=== PATIENT | male | born 1985 | race Caucasian/White ===

== ENCOUNTER 2018-06-02 16:23 | Inpatient (IN) | payer MEDICAID, OTHER ==
[~2018-06-02] VITALS: Ht 175.3 cm; Wt 91.3 kg
[~2018-06-02 16:23] MED LIST: BUPR-93 PO; GABA-531 PO; GABA300C PO; LEVE500T8 PO; LIB10 PO; METH10 PO; OLAN5TAB2 PO
[2018-06-02 17:19] LABS: GLUCOSE,POINT OF CARE 94 MG/DL (70-110)
[2018-06-02 19:05] LABS: AMPHET/METH SCREEN,URINE NEGATIVE (NEGATIVE); BARBITURATE SCREEN, URINE NEGATIVE (NEGATIVE); BENZODIAZEPINES SCREEN,URINE POSITIVE (NEGATIVE); CANNABINOID SCREEN,URINE NEGATIVE (NEGATIVE); COCAINE SCREEN,URINE NEGATIVE (NEGATIVE); METHADONE SCREEN, URINE POSITIVE (NEGATIVE); OPIATE SCREEN,URINE NEGATIVE (NEGATIVE)
[2018-06-02 19:12] LABS: PHENCYCLIDINE SCREEN,URINE NEGATIVE (NEGATIVE)
[2018-06-02 19:30] LABS: BASOPHILS % (AUTO) 0.4 % (0.0-2.0); EOSINOPHILS % (AUTO) 2.1 % (1.0-6.0); HEMATOCRIT 35.3 % (41-53); HEMOGLOBIN 11.8 g/dL (13.5-17.5); LYMPHOCYTES # (AUTO) 2.5 K/uL (1.0-4.8); LYMPHOCYTES % (AUTO) 37.7 % (22.0-44.0); MEAN CORPUSCULAR HGB CONC 33.5 G/dL (31.0-37.0); MEAN CORPUSCULAR VOLUME 87 fL (80-100); MONOCYTES # (AUTO) 0.2 K/uL (0.1-1.0); NEUTROPHILS # (AUTO) 3.8 K/uL (1.8-7.7); NEUTROPHILS % (AUTO) 56.8 % (40.0-70.0); PLATELET COUNT (AUTO) 336 K/uL (150-450); RED BLOOD CELL COUNT(AUTO) 4.07 MIL/uL (4.50-5.90)
[2018-06-02 20:08] LABS: ALANINE AMINOTRANSFERASE 37 U/L (12-78); ALKALINE PHOSPHATASE 107 U/L (46-116); ANION GAP 8 mmol/L (8-16); ASPARTATE AMINOTRANSFERASE 30 U/L (15-37); BILIRUBIN,TOTAL 0.2 mg/dL (0.1-1.0); CALCIUM, TOTAL 9.3 mg/dL (8.8-10.5); CARBON DIOXIDE 30 mmol/L (22-29); CHLORIDE 103 mmol/L (98-107); GLOMERULAR FILTR. RATE CALC > 60 mL/min (>60); GLUCOSE,RANDOM 85 mg/dL (70-110); SODIUM SERUM 141 mmol/L (136-145); TOTAL PROTEIN, SERUM 8.4 g/dL (6.4-8.2)
[2018-06-02 21:00] LABS: UREA NITROGEN, BLOOD 17 mg/dL (7-18)
[2018-06-02] MEDS ORDERED: LOPERAMIDE HCL 2 MG CAPSULE PO PRN (21:15)
[2018-06-02] MEDS ORDERED: CYANOCOBALAMIN 1,000 MCG/ML VIAL IM ONE (21:15)
[2018-06-02] MEDS ORDERED: ZOLPIDEM TARTRATE 10 MG TABLET PO PRN (21:15)
[2018-06-02] MEDS ORDERED: HydrOXYzine PAMOATE 50 MG CAPSULE PO PRN (21:15)
[2018-06-02] MEDS ORDERED: HALOPERIDOL 5 MG TABLET PO PRN (21:15)
[2018-06-02] MEDS ORDERED: GuaiFENesin/D-METHORPHAN [SUGAR-FREE] 200-20MG/10 ML SYRUP UDCUP PO PRN (21:15)
[2018-06-03 00:15] VITALS: BP 145/84
[2018-06-03 00:20] VITALS: BP 145/84
[2018-06-03] MEDS: ChlordiazePOXIDE HCL 25 MG CAPSULE PO PRN ×2 (01:13→04:45)
[2018-06-03 01:15] VITALS: BP 164/92
[2018-06-03 02:15] VITALS: BP 147/85
[2018-06-03 03:15] VITALS: BP 146/86
[2018-06-03 04:15] VITALS: BP 140/82
[2018-06-03] MEDS ORDERED: LORazepam 2 MG/ML VIAL ONE (06:28)
[2018-06-03 06:37] LABS: CHOL/HDL RATIO 4.1 (4.2-7.3)
[2018-06-03 06:39] LABS: GLUCOMETER DEV NAME(LOC) 3EX.; GLUCOSE,POINT OF CARE 92 MG/DL (70-110)
[2018-06-03] MEDS ORDERED: LORazepam 2 MG/ML VIAL IM ONE (06:45)
[2018-06-03] MEDS ORDERED: ChlordiazePOXIDE HCL 25 MG CAPSULE PO PRN (07:00)
[2018-06-03] MEDS ORDERED: DOCUSATE SODIUM 100 MG CAPSULE PO PRN (07:15)
[2018-06-03] MEDS ORDERED: IBUPROFEN 400 MG TABLET PO PRN (07:15)
[2018-06-03] MEDS ORDERED: CloNIDine HCL 0.1 MG TABLET PO PRN (07:15)
[2018-06-03] MEDS ORDERED: ALBUTEROL SULFATE HFA 90 MCG/PUFF 8 GM INHALER IH PRN (07:15)
[2018-06-03] MEDS ORDERED: PETROLATUM,WHITE 71 GM JELLY TP PRN (07:15)
[2018-06-03] MEDS ORDERED: MAGNESIUM HYDROXIDE SUSPENSION 30 ML UDCUP PO PRN (07:15)
[2018-06-03] MEDS ORDERED: GuaiFENesin/D-METHORPHAN [SUGAR-FREE] 200-20MG/10 ML SYRUP UDCUP PO PRN (07:15)
[2018-06-03] MEDS ORDERED: LOPERAMIDE HCL 2 MG CAPSULE PO PRN (07:15)
[2018-06-03] MEDS ORDERED: NICOTINE 14 MG/24 HOUR PATCH TD PRN (07:15)
[2018-06-03] MEDS ORDERED: MAG HYDROX/AL HYDROX/SIMETH ES 30 ML SUSPENSION UDCUP PO PRN (07:15)
[2018-06-03] MEDS ORDERED: ONDANSETRON HCL 4 MG TABLET PO PRN (07:15)
[2018-06-03] MEDS ORDERED: ACETAMINOPHEN 325 MG TABLET PO PRN (07:15)
[2018-06-03] MEDS ORDERED: THIAMINE HCL 100 MG TABLET PO SCH (09:00)
[2018-06-03] MEDS ORDERED: MULTIVITAMINS WITH MINERALS, THERAPEUTIC TABLET PO SCH (09:00)
[2018-06-03] MEDS ORDERED: ChlordiazePOXIDE HCL 25 MG CAPSULE PO SCH (09:00)
[2018-06-03] MEDS ORDERED: FOLIC ACID 1 MG TABLET PO SCH (09:00)
[2018-06-05] MEDS ORDERED: ChlordiazePOXIDE HCL 10 MG CAPSULE PO PRN (07:00)
[2018-06-05] MEDS ORDERED: ChlordiazePOXIDE HCL 10 MG CAPSULE PO SCH (09:00)
[2018-06-06] MEDS ORDERED: ChlordiazePOXIDE HCL 10 MG CAPSULE PO PRN (07:00)
== END 2018-06-03 07:48 | disposition short-term general hospital (02) | DRG 751 ==
LOC: EMS 16:24 → 3EI 22:16
DX: F33.2 Major depressive disorder, recurrent severe without psychotic features (principal); F11.20 Opioid dependence, uncomplicated; F10.20 Alcohol dependence, uncomplicated; F41.9 Anxiety disorder, unspecified; F17.210 Nicotine dependence, cigarettes, uncomplicated; S61.512A Laceration without foreign body of left wrist, initial encounter; S61.511A Laceration without foreign body of right wrist, initial encounter; Z59.0 Homelessness; Y90.7 Blood alcohol level of 200-239 mg/100 ml; F10.239 Alcohol dependence with withdrawal, unspecified; Z88.1 Allergy status to other antibiotic agents; X78.8XXA Intentional self-harm by other sharp object, initial encounter; Y93.89 Activity, other specified; Y92.89 Other specified places as the place of occurrence of the external cause; Y99.8 Other external cause status
CPT/HCPCS: 70450; 72125; 87081; G0480; J2060; J3420

== ENCOUNTER 2018-06-03 07:10 | Inpatient (IN) | payer OTHER ==
[~2018-06-03] VITALS: Ht 177.8 cm; Wt 91.0 kg
[2018-06-03 08:00] VITALS: BP 142/106
[2018-06-03] MEDS: LORazepam 2 MG/ML VIAL IVP PRN ×3 (08:21→23:19)
[2018-06-03] MEDS ORDERED: MORPHINE SULFATE 2 MG/ML SYRINGE IVP PRN (09:00)
[2018-06-03] MEDS ORDERED: ACETAMINOPHEN 325 MG TABLET PO PRN (09:00)
[2018-06-03] MEDS ORDERED: BISACODYL 10 MG RECTAL RECTAL SUPPOSITORY PR PRN (09:00)
[2018-06-03] MEDS ORDERED: MAGNESIUM SULFATE 2 GM, MVI, ADULT NO.1 WITH VIT K 10 ML, THIAMINE HCL 100 MG, FOLIC AC... IV ONE ×5 (09:00)
[2018-06-03] MEDS ORDERED: MAGNESIUM HYDROXIDE SUSPENSION 30 ML UDCUP PO PRN (09:00)
[2018-06-03] MEDS ORDERED: ONDANSETRON HCL 4 MG/2 ML VIAL IVP PRN (09:00)
[2018-06-03] MEDS ORDERED: ZOLPIDEM TARTRATE 5 MG TABLET PO PRN (09:00)
[2018-06-03] MEDS: METHADONE HCL 10 MG TABLET PO SCH (09:35)
[2018-06-03] MEDS: PANTOPRAZOLE SODIUM 40 MG DR TABLET PO SCH (09:36)
[2018-06-03] MEDS: GABAPENTIN 300 MG CAPSULE PO SCH ×3 (09:36→20:11)
[2018-06-03] MEDS: LevETIRAcetam 500 MG TABLET PO SCH ×2 (09:36→20:11)
[2018-06-03] MEDS: DOCUSATE SODIUM 100 MG CAPSULE PO SCH ×2 (09:36→20:11)
[2018-06-03] MEDS: FOLIC ACID 1 MG TABLET PO SCH (09:36)
[2018-06-03] MEDS: THIAMINE HCL 100 MG TABLET PO SCH (09:36)
[2018-06-03 11:37] LABS: BASOPHILS % (AUTO) 0.3 % (0.0-2.0); HEMATOCRIT 33.8 % (41-53); HEMOGLOBIN 11.4 g/dL (13.5-17.5); LYMPHOCYTES # (AUTO) 1.9 K/uL (1.0-4.8); LYMPHOCYTES % (AUTO) 27.8 % (22.0-44.0); MEAN CORPUSCULAR HEMOGLOBIN 28.7 pg (26.0-34.0); MEAN CORPUSCULAR HGB CONC 33.8 G/dL (31.0-37.0); MEAN CORPUSCULAR VOLUME 85 fL (80-100); MONOCYTES # (AUTO) 0.3 K/uL (0.1-1.0); MONOCYTES % (AUTO) 4.5 % (2.0-9.0); NEUTROPHILS # (AUTO) 4.6 K/uL (1.8-7.7); NEUTROPHILS % (AUTO) 66.4 % (40.0-70.0); PLATELET COUNT (AUTO) 293 K/uL (150-450); RED BLOOD CELL COUNT(AUTO) 3.97 MIL/uL (4.50-5.90); RED CELL DISTRIBUTION WIDTH 15.9 % (11.5-14.5)
[2018-06-03 11:54] LABS: ALANINE AMINOTRANSFERASE 31 U/L (12-78); ALBUMIN 3.9 g/dL (3.4-5.0); ALKALINE PHOSPHATASE 108 U/L (46-116); ANION GAP 11 mmol/L (8-16); ASPARTATE AMINOTRANSFERASE 26 U/L (15-37); BILIRUBIN,TOTAL 0.4 mg/dL (0.1-1.0); CALCIUM, TOTAL 9.3 mg/dL (8.8-10.5); CARBON DIOXIDE 28 mmol/L (22-29); CHLORIDE 100 mmol/L (98-107); CREATININE 0.85 mg/dL (0.60-1.30); GLOMERULAR FILTR. RATE CALC > 60 mL/min (>60); GLUCOSE,RANDOM 111 mg/dL (70-110); POTASSIUM 3.5 mmol/L (3.5-5.1); SODIUM SERUM 139 mmol/L (136-145); TOTAL PROTEIN, SERUM 7.9 g/dL (6.4-8.2); UREA NITROGEN, BLOOD 17 mg/dL (7-18)
[2018-06-03 12:00] VITALS: BP 137/88
[2018-06-03] MEDS: HEPARIN SODIUM,PORCINE 5,000 UNITS/ML VIAL SQ SCH ×2 (15:10→23:18)
[2018-06-03 16:00] VITALS: BP 129/79
[2018-06-03 18:08] VITALS: BP 140/69
[2018-06-03 20:34] VITALS: BP 147/91
[2018-06-03] MEDS ORDERED: MAGNESIUM SULFATE 2 GM/WATER 50 ML IV PRN (23:15)
[2018-06-03] MEDS ORDERED: MAGNESIUM SULFATE 4 GM/WATER 100 ML IV PRN (23:15)
[2018-06-03] MEDS: MAGNESIUM OXIDE 400 MG TABLET PO PRN (23:18)
[2018-06-03 23:20] VITALS: BP 131/80
[2018-06-04] MEDS: MAGNESIUM OXIDE 400 MG TABLET PO PRN ×2 (01:56→05:21)
[2018-06-04 05:29] VITALS: BP 116/85
[2018-06-04 06:30] LABS: BASOPHILS % (AUTO) 0.2 % (0.0-2.0); EOSINOPHILS % (AUTO) 1.3 % (1.0-6.0); HEMATOCRIT 33.6 % (41-53); HEMOGLOBIN 11.6 g/dL (13.5-17.5); LYMPHOCYTES # (AUTO) 1.9 K/uL (1.0-4.8); LYMPHOCYTES % (AUTO) 32.2 % (22.0-44.0); MEAN CORPUSCULAR HEMOGLOBIN 29.2 pg (26.0-34.0); MEAN CORPUSCULAR HGB CONC 34.5 G/dL (31.0-37.0); MEAN CORPUSCULAR VOLUME 85 fL (80-100); MONOCYTES # (AUTO) 0.4 K/uL (0.1-1.0); MONOCYTES % (AUTO) 5.8 % (2.0-9.0); NEUTROPHILS # (AUTO) 3.6 K/uL (1.8-7.7); NEUTROPHILS % (AUTO) 60.5 % (40.0-70.0); PLATELET COUNT (AUTO) 252 K/uL (150-450); RED BLOOD CELL COUNT(AUTO) 3.96 MIL/uL (4.50-5.90); RED CELL DISTRIBUTION WIDTH 15.5 % (11.5-14.5)
[2018-06-04 06:53] LABS: ALANINE AMINOTRANSFERASE 35 U/L (12-78); ALBUMIN 3.5 g/dL (3.4-5.0); ALKALINE PHOSPHATASE 105 U/L (46-116); ANION GAP 6 mmol/L (8-16); ASPARTATE AMINOTRANSFERASE 33 U/L (15-37); BILIRUBIN,TOTAL 0.4 mg/dL (0.1-1.0); CARBON DIOXIDE 30 mmol/L (22-29); CHLORIDE 101 mmol/L (98-107); CREATININE 0.87 mg/dL (0.60-1.30); GLOMERULAR FILTR. RATE CALC > 60 mL/min (>60); GLUCOSE,RANDOM 90 mg/dL (70-110); POTASSIUM 3.9 mmol/L (3.5-5.1); SODIUM SERUM 137 mmol/L (136-145); TOTAL PROTEIN, SERUM 7.7 g/dL (6.4-8.2); UREA NITROGEN, BLOOD 16 mg/dL (7-18)
[2018-06-04 07:22] VITALS: BP 101/67
[2018-06-04] MEDS: LORazepam 2 MG/ML VIAL IVP PRN ×3 (07:42→23:33)
[2018-06-04] MEDS: GABAPENTIN 300 MG CAPSULE PO SCH ×3 (08:42→19:53)
[2018-06-04] MEDS: HEPARIN SODIUM,PORCINE 5,000 UNITS/ML VIAL SQ SCH ×3 (08:43→23:33)
[2018-06-04] MEDS: LevETIRAcetam 500 MG TABLET PO SCH ×2 (08:44→19:53)
[2018-06-04] MEDS: THIAMINE HCL 100 MG TABLET PO SCH (08:44)
[2018-06-04] MEDS: PANTOPRAZOLE SODIUM 40 MG DR TABLET PO SCH (08:44)
[2018-06-04] MEDS: METHADONE HCL 10 MG TABLET PO SCH (08:44)
[2018-06-04] MEDS: FOLIC ACID 1 MG TABLET PO SCH (08:44)
[2018-06-04] MEDS: DOCUSATE SODIUM 100 MG CAPSULE PO SCH ×2 (08:44→19:56)
[2018-06-04 11:56] VITALS: BP 146/77
[2018-06-04] MEDS: ChlordiazePOXIDE HCL 25 MG CAPSULE PO SCH ×2 (16:16→23:33)
[2018-06-04] MEDS: ESCITALOPRAM OXALATE 10 MG TABLET PO SCH (16:19)
[2018-06-04 19:35] VITALS: BP 136/78
[2018-06-04 23:43] VITALS: BP 118/74
[2018-06-05 04:26] VITALS: BP 129/83
[2018-06-05] MEDS: LORazepam 2 MG/ML VIAL IVP PRN ×3 (07:31→20:47)
[2018-06-05] MEDS: GABAPENTIN 300 MG CAPSULE PO SCH ×3 (07:33→20:26)
[2018-06-05] MEDS: FOLIC ACID 1 MG TABLET PO SCH (07:33)
[2018-06-05] MEDS: LevETIRAcetam 500 MG TABLET PO SCH ×2 (07:33→20:26)
[2018-06-05] MEDS: DOCUSATE SODIUM 100 MG CAPSULE PO SCH ×2 (07:33→20:26)
[2018-06-05] MEDS: METHADONE HCL 10 MG TABLET PO SCH (07:34)
[2018-06-05] MEDS: PANTOPRAZOLE SODIUM 40 MG DR TABLET PO SCH (07:35)
[2018-06-05] MEDS: ChlordiazePOXIDE HCL 25 MG CAPSULE PO SCH ×3 (07:35→23:44)
[2018-06-05] MEDS: THIAMINE HCL 100 MG TABLET PO SCH (07:35)
[2018-06-05] MEDS: ESCITALOPRAM OXALATE 10 MG TABLET PO SCH (07:40)
[2018-06-05] MEDS: HEPARIN SODIUM,PORCINE 5,000 UNITS/ML VIAL SQ SCH ×3 (07:40→23:44)
[2018-06-05 07:59] VITALS: BP 117/68
[2018-06-05 11:35] VITALS: BP 141/78
[2018-06-05 16:01] VITALS: BP 138/73
[2018-06-05 19:52] VITALS: BP 140/78
[2018-06-05 23:59] VITALS: BP 142/76
[2018-06-06 03:30] VITALS: BP 139/76
[2018-06-06 07:28] VITALS: BP 120/84
[2018-06-06] MEDS: GABAPENTIN 300 MG CAPSULE PO SCH ×3 (08:00→20:00)
[2018-06-06] MEDS: PANTOPRAZOLE SODIUM 40 MG DR TABLET PO SCH (08:00)
[2018-06-06] MEDS: FOLIC ACID 1 MG TABLET PO SCH (08:00)
[2018-06-06] MEDS: LORazepam 2 MG/ML VIAL IVP PRN ×3 (08:00→19:56)
[2018-06-06] MEDS: ChlordiazePOXIDE HCL 25 MG CAPSULE PO SCH ×3 (08:00→23:38)
[2018-06-06] MEDS: HEPARIN SODIUM,PORCINE 5,000 UNITS/ML VIAL SQ SCH ×3 (08:00→23:38)
[2018-06-06] MEDS: LevETIRAcetam 500 MG TABLET PO SCH ×2 (08:00→20:00)
[2018-06-06] MEDS: METHADONE HCL 10 MG TABLET PO SCH (08:00)
[2018-06-06] MEDS: THIAMINE HCL 100 MG TABLET PO SCH (08:00)
[2018-06-06] MEDS: ESCITALOPRAM OXALATE 10 MG TABLET PO SCH (08:03)
[2018-06-06] MEDS: DOCUSATE SODIUM 100 MG CAPSULE PO SCH ×2 (08:04→19:58)
[2018-06-06 12:25] VITALS: BP 121/79
[2018-06-06 15:27] VITALS: BP 144/70
[2018-06-06] MEDS: HYDROCODONE/ACETAMINOPHEN 5-325 MG TABLET PO PRN (19:58)
[2018-06-06 20:03] VITALS: BP 128/96
[2018-06-06 23:43] VITALS: BP 125/74
[2018-06-07 04:42] VITALS: BP 102/58
[2018-06-07 07:52] VITALS: BP 124/95
[2018-06-07 07:53] VITALS: BP 124/95
[2018-06-07] MEDS: LORazepam 2 MG/ML VIAL IVP PRN ×3 (07:54→21:28)
[2018-06-07] MEDS: DOCUSATE SODIUM 100 MG CAPSULE PO SCH ×2 (07:54→20:10)
[2018-06-07] MEDS: LevETIRAcetam 500 MG TABLET PO SCH ×2 (07:54→20:10)
[2018-06-07] MEDS: ChlordiazePOXIDE HCL 25 MG CAPSULE PO SCH ×3 (07:54→23:01)
[2018-06-07] MEDS: GABAPENTIN 300 MG CAPSULE PO SCH ×3 (07:54→20:10)
[2018-06-07] MEDS: THIAMINE HCL 100 MG TABLET PO SCH (07:54)
[2018-06-07] MEDS: PANTOPRAZOLE SODIUM 40 MG DR TABLET PO SCH (07:54)
[2018-06-07] MEDS: FOLIC ACID 1 MG TABLET PO SCH (07:54)
[2018-06-07] MEDS: ESCITALOPRAM OXALATE 10 MG TABLET PO SCH (07:57)
[2018-06-07] MEDS: METHADONE HCL 10 MG TABLET PO SCH (07:57)
[2018-06-07] MEDS: HEPARIN SODIUM,PORCINE 5,000 UNITS/ML VIAL SQ SCH ×3 (09:15→23:02)
[2018-06-07 13:16] VITALS: BP 138/81
[2018-06-07 15:34] VITALS: BP 117/70
[2018-06-07 20:30] VITALS: BP 133/83
[2018-06-07] MEDS: HYDROCODONE/ACETAMINOPHEN 5-325 MG TABLET PO PRN (21:28)
[2018-06-08] VITALS: BP 125/76
[2018-06-08 04:00] VITALS: BP 121/79
[2018-06-08 07:51] VITALS: BP 126/56
[2018-06-08] MEDS: LORazepam 2 MG/ML VIAL IVP PRN (07:56)
[2018-06-08] MEDS: HEPARIN SODIUM,PORCINE 5,000 UNITS/ML VIAL SQ SCH (07:57)
[2018-06-08] MEDS: THIAMINE HCL 100 MG TABLET PO SCH (07:57)
[2018-06-08] MEDS: FOLIC ACID 1 MG TABLET PO SCH (07:57)
[2018-06-08] MEDS: GABAPENTIN 300 MG CAPSULE PO SCH (07:57)
[2018-06-08] MEDS: ChlordiazePOXIDE HCL 25 MG CAPSULE PO SCH (07:57)
[2018-06-08] MEDS: PANTOPRAZOLE SODIUM 40 MG DR TABLET PO SCH (07:57)
[2018-06-08] MEDS: LevETIRAcetam 500 MG TABLET PO SCH (07:57)
[2018-06-08] MEDS: DOCUSATE SODIUM 100 MG CAPSULE PO SCH (07:57)
[2018-06-08] MEDS: ESCITALOPRAM OXALATE 10 MG TABLET PO SCH (08:45)
[2018-06-08] MEDS: METHADONE HCL 10 MG TABLET PO SCH (08:46)
[2018-06-08 11:53] VITALS: BP 120/82
== END 2018-06-08 13:33 | DRG 53 ==
LOC: ICU 07:10 → 6N 17:40
PROVIDERS: ADMIT Internal Medicine; ATTEND Internal Medicine
DX: G40.89 Other seizures (principal); R45.851 Suicidal ideations; F33.2 Major depressive disorder, recurrent severe without psychotic features; F11.20 Opioid dependence, uncomplicated; F10.239 Alcohol dependence with withdrawal, unspecified; D64.9 Anemia, unspecified; Z59.0 Homelessness; Z91.5 Personal history of self-harm
CPT/HCPCS: 83735; 87081; G0378; J1644; J2060; J3411; J3475; J3490; J7030

== ENCOUNTER 2018-06-08 14:00 | Inpatient (IN) | payer MEDICAID ==
[2018-06-08] VITALS (7 sets, daily range): BP systolic 118–136; BP diastolic 59–97
[~2018-06-08] VITALS: Ht 170.2 cm; Wt 92.1 kg
[2018-06-08] MEDS ORDERED: ZOLPIDEM TARTRATE 10 MG TABLET PO PRN (14:45)
[2018-06-08] MEDS: THIAMINE HCL 100 MG TABLET PO SCH (16:32)
[2018-06-08] MEDS: ChlordiazePOXIDE HCL 25 MG CAPSULE PO PRN ×2 (17:42→20:22)
[2018-06-08] MEDS: LORazepam 2 MG TABLET PO PRN ×2 (18:00→22:54)
[2018-06-08] MEDS: HALOPERIDOL 5 MG TABLET PO PRN (18:03)
[2018-06-09 02:00] VITALS: BP 118/69
[2018-06-09] MEDS: LORazepam 2 MG TABLET PO PRN ×2 (05:53→10:00)
[2018-06-09 06:00] VITALS: BP 118/79
[2018-06-09 06:44] LABS: CHOL/HDL RATIO 3.5 (4.2-7.3); FREE T4 (FREE THYROXINE) 0.89 ng/dL (0.76-1.46); THYROID STIMULATING HORMONE 2.07 uIU/mL (0.36-3.74)
[2018-06-09] MEDS: ChlordiazePOXIDE HCL 25 MG CAPSULE PO PRN ×2 (07:46→19:01)
[2018-06-09 08:00] VITALS: BP 102/77
[2018-06-09] MEDS: THIAMINE HCL 100 MG TABLET PO SCH ×2 (08:24→16:54)
[2018-06-09] MEDS: METHADONE HCL 10 MG TABLET PO SCH (08:24)
[2018-06-09] MEDS: MULTIVITAMINS WITH MINERALS, THERAPEUTIC TABLET PO SCH (08:24)
[2018-06-09] MEDS: FOLIC ACID 1 MG TABLET PO SCH (08:24)
[2018-06-09] MEDS: ChlordiazePOXIDE HCL 25 MG CAPSULE PO SCH ×4 (09:35→20:56)
[2018-06-09 12:00] VITALS: BP 126/86
[2018-06-09] MEDS: ESCITALOPRAM OXALATE 10 MG TABLET PO SCH (12:26)
[2018-06-09 17:00] VITALS: BP 118/71
[2018-06-09] MEDS: HALOPERIDOL 5 MG TABLET PO PRN (20:16)
[2018-06-09 21:00] VITALS: BP 121/71
[2018-06-10] MEDS: ChlordiazePOXIDE HCL 25 MG CAPSULE PO PRN ×4 (03:30→19:07)
[2018-06-10] MEDS: HALOPERIDOL 5 MG TABLET PO PRN ×4 (03:30→16:49)
[2018-06-10 03:33] VITALS: BP 146/114
[2018-06-10 03:34] VITALS: BP 146/114
[2018-06-10 08:05] VITALS: BP 136/68
[2018-06-10] MEDS: THIAMINE HCL 100 MG TABLET PO SCH ×2 (08:30→16:49)
[2018-06-10] MEDS: FOLIC ACID 1 MG TABLET PO SCH (08:30)
[2018-06-10] MEDS: GABAPENTIN 300 MG CAPSULE PO SCH ×4 (08:30→20:30)
[2018-06-10] MEDS: MULTIVITAMINS WITH MINERALS, THERAPEUTIC TABLET PO SCH (08:30)
[2018-06-10] MEDS: LevETIRAcetam 500 MG TABLET PO SCH ×2 (08:30→16:49)
[2018-06-10] MEDS: ESCITALOPRAM OXALATE 10 MG TABLET PO SCH (08:30)
[2018-06-10] MEDS: METHADONE HCL 10 MG TABLET PO SCH (08:31)
[2018-06-10] MEDS: ChlordiazePOXIDE HCL 25 MG CAPSULE PO SCH ×4 (09:35→20:31)
[2018-06-10 16:00] VITALS: BP 141/71
[2018-06-10 19:23] VITALS: BP 141/71
[2018-06-11 05:05] VITALS: BP 121/72
[2018-06-11] MEDS: ChlordiazePOXIDE HCL 25 MG CAPSULE PO PRN (05:15)
[2018-06-11] MEDS: HALOPERIDOL 5 MG TABLET PO PRN ×3 (05:15→17:56)
[2018-06-11 05:20] VITALS: BP 121/72
[2018-06-11] MEDS ORDERED: ChlordiazePOXIDE HCL 10 MG CAPSULE PO PRN (07:00)
[2018-06-11 08:35] VITALS: BP 122/92
[2018-06-11] MEDS: LevETIRAcetam 500 MG TABLET PO SCH ×2 (08:35→16:11)
[2018-06-11] MEDS: METHADONE HCL 10 MG TABLET PO SCH (08:35)
[2018-06-11] MEDS: FOLIC ACID 1 MG TABLET PO SCH (08:35)
[2018-06-11] MEDS: ESCITALOPRAM OXALATE 10 MG TABLET PO SCH (08:35)
[2018-06-11] MEDS: MULTIVITAMINS WITH MINERALS, THERAPEUTIC TABLET PO SCH (08:36)
[2018-06-11] MEDS: GABAPENTIN 300 MG CAPSULE PO SCH ×4 (08:36→21:15)
[2018-06-11] MEDS: ChlordiazePOXIDE HCL 10 MG CAPSULE PO SCH ×4 (08:38→21:15)
[2018-06-11] MEDS: THIAMINE HCL 100 MG TABLET PO SCH ×2 (08:41→16:11)
[2018-06-11 11:12] VITALS: BP 101/67
[2018-06-11 19:04] VITALS: BP 138/92
[2018-06-11 19:06] VITALS: BP 138/92
[2018-06-12] MEDS: HALOPERIDOL 5 MG TABLET PO PRN ×2 (02:39→08:29)
[2018-06-12 03:31] VITALS: BP 106/56
[2018-06-12] MEDS ORDERED: ChlordiazePOXIDE HCL 10 MG CAPSULE PO PRN (07:00)
[2018-06-12 08:20] VITALS: BP 122/69
[2018-06-12] MEDS: MULTIVITAMINS WITH MINERALS, THERAPEUTIC TABLET PO SCH (08:28)
[2018-06-12] MEDS: METHADONE HCL 10 MG TABLET PO SCH (08:28)
[2018-06-12] MEDS: ESCITALOPRAM OXALATE 10 MG TABLET PO SCH (08:29)
[2018-06-12] MEDS: THIAMINE HCL 100 MG TABLET PO SCH (08:29)
[2018-06-12] MEDS: FOLIC ACID 1 MG TABLET PO SCH (08:29)
[2018-06-12] MEDS: GABAPENTIN 300 MG CAPSULE PO SCH ×2 (08:29→13:02)
[2018-06-12] MEDS: LevETIRAcetam 500 MG TABLET PO SCH (08:29)
[2018-06-12] MEDS ORDERED: ESCI10TA PO (09:46)
[2018-06-12] MEDS ORDERED: MULT-1239 PO (09:47)
[2018-06-12] MEDS ORDERED: FOLI1 PO (09:47)
[2018-06-12] MEDS ORDERED: THIA100T67 PO (09:48)
== END 2018-06-12 15:25 | disposition home or self-care (01) | DRG 751 ==
LOC: 3EI 14:00
DX: F33.2 Major depressive disorder, recurrent severe without psychotic features (principal); F11.20 Opioid dependence, uncomplicated; R45.851 Suicidal ideations; D64.9 Anemia, unspecified; E78.5 Hyperlipidemia, unspecified; G40.909 Epilepsy, unspecified, not intractable, without status epilepticus; G89.29 Other chronic pain; F10.20 Alcohol dependence, uncomplicated; F19.10 Other psychoactive substance abuse, uncomplicated; M54.9 Dorsalgia, unspecified; I10 Essential (primary) hypertension; Z59.0 Homelessness; Z79.899 Other long term (current) drug therapy; Z91.5 Personal history of self-harm; Z88.8 Allergy status to other drugs, medicaments and biological substances; Z71.51 Drug abuse counseling and surveillance of drug abuser; Z71.41 Alcohol abuse counseling and surveillance of alcoholic
CPT/HCPCS: 84436; 84439; 84443; 87081

== ENCOUNTER 2018-08-29 14:04 | Inpatient (IN) | payer MEDICAID, OTHER ==
[~2018-08-29] VITALS: Ht 175.3 cm; Wt 101.0 kg
[~2018-08-29 14:04] MED LIST changes: -BUPR-93 PO; +ESCI10TA PO; +FOLI1 PO; -GABA-531 PO; -LIB10 PO; -METH10 PO; +MULT-1239 PO; -OLAN5TAB2 PO; +THIA100T67 PO
[2018-08-29] MEDS ORDERED: THIAMINE HCL 100 MG/ML 2ML VIAL IVP ONE (16:00)
[2018-08-29] MEDS ORDERED: FOLIC ACID 5 MG/ML 10 ML VIAL IVP ONE (16:00)
[2018-08-29 16:05] LABS: BASOPHILS % (AUTO) 0.7 % (0.0-2.0); EOSINOPHILS % (AUTO) 1.5 % (1.0-6.0); HEMATOCRIT 36.6 % (41-53); HEMOGLOBIN 12.3 g/dL (13.5-17.5); LYMPHOCYTES # (AUTO) 2.2 K/uL (1.0-4.8); LYMPHOCYTES % (AUTO) 28.9 % (22.0-44.0); MEAN CORPUSCULAR HEMOGLOBIN 28.8 pg (26.0-34.0); MEAN CORPUSCULAR HGB CONC 33.5 G/dL (31.0-37.0); MEAN CORPUSCULAR VOLUME 86 fL (80-100); MONOCYTES # (AUTO) 0.3 K/uL (0.1-1.0); MONOCYTES % (AUTO) 3.3 % (2.0-9.0); NEUTROPHILS # (AUTO) 5.1 K/uL (1.8-7.7); NEUTROPHILS % (AUTO) 65.6 % (40.0-70.0); PLATELET COUNT (AUTO) 373 K/uL (150-450); RED BLOOD CELL COUNT(AUTO) 4.26 MIL/uL (4.50-5.90); RED CELL DISTRIBUTION WIDTH 15.1 % (11.5-14.5)
[2018-08-29] MEDS ORDERED: LORazepam 2 MG/ML VIAL IVP ONE ×2 (16:15→21:15)
[2018-08-29 16:21] LABS: ANION GAP 19 mmol/L (8-16); CARBON DIOXIDE 20 mmol/L (22-29); CHLORIDE 104 mmol/L (98-107); CREATININE 1.07 mg/dL (0.60-1.30); GLOMERULAR FILTR. RATE CALC > 60 mL/min (>60); GLUCOSE,RANDOM 115 mg/dL (70-110); POTASSIUM 3.8 mmol/L (3.5-5.1); SODIUM SERUM 143 mmol/L (136-145); UREA NITROGEN, BLOOD 10 mg/dL (7-18)
[2018-08-29 16:25] LABS: ALANINE AMINOTRANSFERASE 33 U/L (12-78); ALBUMIN 4.4 g/dL (3.4-5.0); ALKALINE PHOSPHATASE 116 U/L (46-116); ASPARTATE AMINOTRANSFERASE 23 U/L (15-37); BILIRUBIN,TOTAL 0.2 mg/dL (0.1-1.0); TOTAL PROTEIN, SERUM 8.8 g/dL (6.4-8.2)
[2018-08-29] MEDS ORDERED: 0.9% SODIUM CHLORIDE 10 ML SYRINGE IVP PRN (17:00)
[2018-08-29] MEDS ORDERED: ONDANSETRON HCL 4 MG/2 ML VIAL IVP PRN (17:00)
[2018-08-29] MEDS ORDERED: ACETAMINOPHEN 325 MG TABLET PO PRN (17:00)
[2018-08-29 20:05] VITALS: BP 155/81
[2018-08-29] MEDS ORDERED: LevETIRAcetam 1,000 MG in DEXTROSE 5%-WATER 100 ML IV ONE (21:15)
[2018-08-29] MEDS ORDERED: SODIUM CHLORIDE 0.9% 250 ML IV ONE (22:24)
[2018-08-30 00:30] VITALS: BP 148/83
[2018-08-30] MEDS ORDERED: [UNRECOGNIZED DRUG - REMARK] IV ONE ×5 (00:30)
[2018-08-30] MEDS: THIAMINE HCL 100 MG TABLET PO SCH ×3 (01:30→21:04)
[2018-08-30 04:30] VITALS: BP 148/83
[2018-08-30] MEDS: LORazepam 2 MG/ML VIAL IVP PRN ×2 (05:30→11:11)
[2018-08-30 05:57] LABS: BASOPHILS % (AUTO) 0.2 % (0.0-2.0); EOSINOPHILS % (AUTO) 3.2 % (1.0-6.0); HEMOGLOBIN 12.3 g/dL (13.5-17.5); LYMPHOCYTES # (AUTO) 1.8 K/uL (1.0-4.8); LYMPHOCYTES % (AUTO) 37.4 % (22.0-44.0); MEAN CORPUSCULAR HEMOGLOBIN 28.9 pg (26.0-34.0); MEAN CORPUSCULAR HGB CONC 33.2 G/dL (31.0-37.0); MEAN CORPUSCULAR VOLUME 87 fL (80-100); MONOCYTES # (AUTO) 0.3 K/uL (0.1-1.0); MONOCYTES % (AUTO) 6.2 % (2.0-9.0); NEUTROPHILS # (AUTO) 2.6 K/uL (1.8-7.7); PLATELET COUNT (AUTO) 229 K/uL (150-450); RED BLOOD CELL COUNT(AUTO) 4.25 MIL/uL (4.50-5.90); RED CELL DISTRIBUTION WIDTH 15.5 % (11.5-14.5)
[2018-08-30 06:06] LABS: ALANINE AMINOTRANSFERASE 31 U/L (12-78); ALKALINE PHOSPHATASE 109 U/L (46-116); ANION GAP 9 mmol/L (8-16); ASPARTATE AMINOTRANSFERASE 24 U/L (15-37); BILIRUBIN,TOTAL 0.4 mg/dL (0.1-1.0); CALCIUM, TOTAL 9.4 mg/dL (8.8-10.5); CARBON DIOXIDE 25 mmol/L (22-29); CHLORIDE 104 mmol/L (98-107); CREATININE 0.78 mg/dL (0.60-1.30); GLOMERULAR FILTR. RATE CALC > 60 mL/min (>60); GLUCOSE,RANDOM 101 mg/dL (70-110); POTASSIUM 4.2 mmol/L (3.5-5.1); SODIUM SERUM 138 mmol/L (136-145); TOTAL PROTEIN, SERUM 8.1 g/dL (6.4-8.2); UREA NITROGEN, BLOOD 12 mg/dL (7-18)
[2018-08-30 08:00] VITALS: BP 142/77
[2018-08-30] MEDS: MULTIVITAMINS WITH MINERALS, THERAPEUTIC TABLET PO SCH (09:18)
[2018-08-30] MEDS: ChlordiazePOXIDE HCL 25 MG CAPSULE PO SCH ×4 (09:18→21:04)
[2018-08-30] MEDS: CloNIDine HCL 0.1 MG TABLET PO SCH ×4 (09:18→21:05)
[2018-08-30] MEDS: LevETIRAcetam 500 MG TABLET PO SCH ×2 (09:18→21:05)
[2018-08-30] MEDS: ESCITALOPRAM OXALATE 10 MG TABLET PO SCH (09:18)
[2018-08-30] MEDS: FOLIC ACID 1 MG TABLET PO SCH (09:18)
[2018-08-30] MEDS: GABAPENTIN 300 MG CAPSULE PO SCH ×4 (09:18→21:05)
[2018-08-30] MEDS ORDERED: ONDANSETRON HCL 4 MG/2 ML VIAL IVP PRN (11:15)
[2018-08-30 11:51] VITALS: BP 121/86
[2018-08-30] MEDS: METHADONE HCL 10 MG TABLET PO SCH (12:04)
[2018-08-30 15:27] VITALS: BP 126/68
[2018-08-30 21:00] VITALS: BP 108/77
[2018-08-31] VITALS: BP 117/62
[2018-08-31] MEDS: LORazepam 2 MG/ML VIAL IVP PRN ×3 (00:09→16:19)
[2018-08-31 05:25] VITALS: BP 111/63
[2018-08-31] MEDS: CloNIDine HCL 0.1 MG TABLET PO SCH ×3 (07:51→20:23)
[2018-08-31] MEDS: THIAMINE HCL 100 MG TABLET PO SCH ×2 (07:51→20:23)
[2018-08-31] MEDS: FOLIC ACID 1 MG TABLET PO SCH (07:51)
[2018-08-31] MEDS: ChlordiazePOXIDE HCL 25 MG CAPSULE PO SCH ×4 (07:51→20:23)
[2018-08-31] MEDS: LevETIRAcetam 500 MG TABLET PO SCH ×2 (07:51→20:23)
[2018-08-31] MEDS: ESCITALOPRAM OXALATE 10 MG TABLET PO SCH (07:51)
[2018-08-31] MEDS: GABAPENTIN 300 MG CAPSULE PO SCH ×4 (07:51→20:23)
[2018-08-31] MEDS: MULTIVITAMINS WITH MINERALS, THERAPEUTIC TABLET PO SCH (07:51)
[2018-08-31] MEDS: METHADONE HCL 10 MG TABLET PO SCH (07:51)
[2018-08-31 08:19] VITALS: BP 132/67
[2018-08-31 12:41] VITALS: BP 115/60
[2018-08-31 15:46] VITALS: BP 108/70
[2018-08-31 19:53] VITALS: BP 117/76
[2018-08-31] MEDS ORDERED: OLANZapine 5 MG TABLET PO SCH (21:00)
[2018-08-31] MEDS ORDERED: HydrOXYzine PAMOATE 25 MG CAPSULE PO PRN (22:30)
[2018-09-01 00:15] VITALS: BP 118/59
[2018-09-01] MEDS: LORazepam 2 MG/ML VIAL IVP PRN ×2 (04:47→16:46)
[2018-09-01 04:54] VITALS: BP 116/72
[2018-09-01 07:45] VITALS: BP 120/70
[2018-09-01] MEDS: METHADONE HCL 10 MG TABLET PO SCH (08:00)
[2018-09-01] MEDS: OLANZapine 5 MG TABLET PO SCH ×2 (08:01→20:38)
[2018-09-01] MEDS: GABAPENTIN 300 MG CAPSULE PO SCH ×4 (08:01→20:38)
[2018-09-01] MEDS: ESCITALOPRAM OXALATE 10 MG TABLET PO SCH (08:01)
[2018-09-01] MEDS: THIAMINE HCL 100 MG TABLET PO SCH ×2 (08:02→20:42)
[2018-09-01] MEDS: LevETIRAcetam 500 MG TABLET PO SCH ×2 (08:02→16:48)
[2018-09-01] MEDS: MULTIVITAMINS WITH MINERALS, THERAPEUTIC TABLET PO SCH (08:02)
[2018-09-01] MEDS: ChlordiazePOXIDE HCL 25 MG CAPSULE PO SCH ×4 (08:02→20:38)
[2018-09-01] MEDS: FOLIC ACID 1 MG TABLET PO SCH (08:02)
[2018-09-01] MEDS: CloNIDine HCL 0.1 MG TABLET PO SCH ×3 (08:02→20:38)
[2018-09-01 11:42] VITALS: BP 126/78
[2018-09-01 15:34] VITALS: BP 128/72
[2018-09-01 20:10] VITALS: BP 105/58
[2018-09-02 00:30] VITALS: BP 111/69
[2018-09-02] MEDS: LORazepam 2 MG/ML VIAL IVP PRN ×2 (04:56→16:23)
[2018-09-02 05:00] VITALS: BP 106/59
[2018-09-02] MEDS: GABAPENTIN 300 MG CAPSULE PO SCH ×4 (08:08→21:23)
[2018-09-02] MEDS: THIAMINE HCL 100 MG TABLET PO SCH ×2 (08:09→21:23)
[2018-09-02] MEDS: ESCITALOPRAM OXALATE 10 MG TABLET PO SCH (08:09)
[2018-09-02] MEDS: OLANZapine 5 MG TABLET PO SCH ×2 (08:09→21:23)
[2018-09-02] MEDS: ChlordiazePOXIDE HCL 25 MG CAPSULE PO SCH ×4 (08:09→21:23)
[2018-09-02] MEDS: METHADONE HCL 10 MG TABLET PO SCH (08:09)
[2018-09-02] MEDS: FOLIC ACID 1 MG TABLET PO SCH (08:09)
[2018-09-02] MEDS: LevETIRAcetam 500 MG TABLET PO SCH ×2 (08:09→21:23)
[2018-09-02] MEDS: MULTIVITAMINS WITH MINERALS, THERAPEUTIC TABLET PO SCH (08:09)
[2018-09-02] MEDS: CloNIDine HCL 0.1 MG TABLET PO SCH ×3 (08:17→21:00)
[2018-09-02 08:51] VITALS: BP 117/76
[2018-09-02 11:57] VITALS: BP 107/77
[2018-09-02 16:37] VITALS: BP 112/54
[2018-09-02 18:10] LABS: BASOPHILS % (AUTO) 0.4 % (0.0-2.0); EOSINOPHILS % (AUTO) 2.1 % (1.0-6.0); HEMATOCRIT 35.4 % (41-53); HEMOGLOBIN 11.8 g/dL (13.5-17.5); LYMPHOCYTES # (AUTO) 1.9 K/uL (1.0-4.8); LYMPHOCYTES % (AUTO) 38.6 % (22.0-44.0); MEAN CORPUSCULAR HEMOGLOBIN 29.2 pg (26.0-34.0); MEAN CORPUSCULAR HGB CONC 33.3 G/dL (31.0-37.0); MEAN CORPUSCULAR VOLUME 88 fL (80-100); MONOCYTES # (AUTO) 0.3 K/uL (0.1-1.0); MONOCYTES % (AUTO) 5.5 % (2.0-9.0); NEUTROPHILS # (AUTO) 2.6 K/uL (1.8-7.7); NEUTROPHILS % (AUTO) 53.4 % (40.0-70.0); PLATELET COUNT (AUTO) 230 K/uL (150-450); RED BLOOD CELL COUNT(AUTO) 4.03 MIL/uL (4.50-5.90); RED CELL DISTRIBUTION WIDTH 15.2 % (11.5-14.5)
[2018-09-02 18:18] LABS: ANION GAP 11 mmol/L (8-16); CALCIUM, TOTAL 8.9 mg/dL (8.8-10.5); CARBON DIOXIDE 25 mmol/L (22-29); CHLORIDE 104 mmol/L (98-107); CREATININE 0.86 mg/dL (0.60-1.30); GLOMERULAR FILTR. RATE CALC > 60 mL/min (>60); GLUCOSE,RANDOM 147 mg/dL (70-110); POTASSIUM 3.8 mmol/L (3.5-5.1); SODIUM SERUM 140 mmol/L (136-145); UREA NITROGEN, BLOOD 13 mg/dL (7-18)
[2018-09-02 20:04] VITALS: BP 116/57
[2018-09-03 00:30] VITALS: BP 128/82
[2018-09-03 03:43] VITALS: BP 119/71
[2018-09-03] MEDS: LORazepam 2 MG/ML VIAL IVP PRN (04:47)
[2018-09-03] MEDS: THIAMINE HCL 100 MG TABLET PO SCH ×2 (08:08→20:54)
[2018-09-03] MEDS: METHADONE HCL 10 MG TABLET PO SCH (08:08)
[2018-09-03] MEDS: ChlordiazePOXIDE HCL 25 MG CAPSULE PO SCH ×4 (08:08→20:54)
[2018-09-03] MEDS: ESCITALOPRAM OXALATE 10 MG TABLET PO SCH (08:08)
[2018-09-03] MEDS: MULTIVITAMINS WITH MINERALS, THERAPEUTIC TABLET PO SCH (08:08)
[2018-09-03] MEDS: GABAPENTIN 300 MG CAPSULE PO SCH ×4 (08:08→20:54)
[2018-09-03] MEDS: LevETIRAcetam 500 MG TABLET PO SCH ×2 (08:08→20:54)
[2018-09-03] MEDS: FOLIC ACID 1 MG TABLET PO SCH (08:08)
[2018-09-03] MEDS: CloNIDine HCL 0.1 MG TABLET PO SCH ×3 (08:08→20:54)
[2018-09-03] MEDS: OLANZapine 5 MG TABLET PO SCH ×2 (08:08→20:54)
[2018-09-03 08:25] VITALS: BP 139/72
[2018-09-03 11:35] VITALS: BP 122/68
[2018-09-03 16:14] VITALS: BP 112/68
[2018-09-03] MEDS ORDERED: LIB10 PO (16:23)
[2018-09-03] MEDS ORDERED: CLON0.1T PO (16:23)
[2018-09-03] MEDS ORDERED: OLAN5TAB2 PO (16:24)
[2018-09-03 20:44] VITALS: BP 139/78
[2018-09-04 00:36] VITALS: BP 126/55
[2018-09-04 03:34] VITALS: BP 123/70
[2018-09-04] MEDS: LORazepam 2 MG/ML VIAL IVP PRN ×2 (07:31→14:05)
[2018-09-04 07:56] VITALS: BP 103/66
[2018-09-04] MEDS: METHADONE HCL 10 MG TABLET PO SCH (08:17)
[2018-09-04] MEDS: ChlordiazePOXIDE HCL 25 MG CAPSULE PO SCH ×2 (08:18→13:12)
[2018-09-04] MEDS: MULTIVITAMINS WITH MINERALS, THERAPEUTIC TABLET PO SCH (08:18)
[2018-09-04] MEDS: OLANZapine 5 MG TABLET PO SCH (08:18)
[2018-09-04] MEDS: THIAMINE HCL 100 MG TABLET PO SCH (08:18)
[2018-09-04] MEDS: LevETIRAcetam 500 MG TABLET PO SCH (08:18)
[2018-09-04] MEDS: GABAPENTIN 300 MG CAPSULE PO SCH ×2 (08:18→13:12)
[2018-09-04] MEDS: FOLIC ACID 1 MG TABLET PO SCH (08:18)
[2018-09-04] MEDS: ESCITALOPRAM OXALATE 10 MG TABLET PO SCH (08:18)
[2018-09-04] MEDS: CloNIDine HCL 0.1 MG TABLET PO SCH (08:18)
[2018-09-04 11:38] VITALS: BP 115/81
== END 2018-09-04 18:50 | disposition home or self-care (01) | DRG 773 ==
LOC: EMS 14:06 → 5N 18:23
PROVIDERS: ADMIT Internal Medicine; ATTEND Internal Medicine
DX: F10.231 Alcohol dependence with withdrawal delirium (principal); F11.10 Opioid abuse, uncomplicated; F29 Unspecified psychosis not due to a substance or known physiological condition; F10.229 Alcohol dependence with intoxication, unspecified; G40.909 Epilepsy, unspecified, not intractable, without status epilepticus; F41.1 Generalized anxiety disorder; F17.210 Nicotine dependence, cigarettes, uncomplicated; F12.10 Cannabis abuse, uncomplicated; Z59.0 Homelessness; Z88.8 Allergy status to other drugs, medicaments and biological substances; Z86.718 Personal history of other venous thrombosis and embolism
CPT/HCPCS: 96374; 96375; G0378; G0480; J0712; J2060; J3411; J3475; J3490; J7030; J7050; J7060

== ENCOUNTER 2018-09-18 18:52 | Inpatient (IN) | payer OTHER ==
[~2018-09-18] VITALS: Ht 175.3 cm; Wt 103.3 kg
[~2018-09-18 18:52] MED LIST changes: -ESCI10TA PO; -FOLI1 PO; +METH10SO PO; -MULT-1239 PO; -THIA100T67 PO
[2018-09-18] MEDS ORDERED: ONDANSETRON HCL 4 MG/2 ML VIAL IVP ONE (20:45)
[2018-09-18] MEDS ORDERED: LORazepam 2 MG/ML VIAL IVP ONE (20:45)
[2018-09-18] MEDS ORDERED: SODIUM CHLORIDE 0.9% 1,000 ML IV ONE ×2 (20:45→21:15)
[2018-09-18] MEDS ORDERED: MAGNESIUM SULFATE 4 GM/WATER 100 ML IV PRN (21:15)
[2018-09-18] MEDS ORDERED: POTASSIUM CHLORIDE 20 MEQ ER TABLET PO PRN (21:15)
[2018-09-18] MEDS ORDERED: MAGNESIUM SULFATE 2 GM/WATER 50 ML IV PRN (21:15)
[2018-09-18] MEDS ORDERED: ZOLPIDEM TARTRATE 5 MG TABLET PO PRN (21:15)
[2018-09-18] MEDS ORDERED: MAGNESIUM OXIDE 400 MG TABLET PO PRN (21:15)
[2018-09-18] MEDS ORDERED: MAGNESIUM HYDROXIDE SUSPENSION 30 ML UDCUP PO PRN (21:15)
[2018-09-18] MEDS ORDERED: ACETAMINOPHEN 325 MG TABLET PO PRN (21:15)
[2018-09-18 21:22] LABS: BASOPHILS % (AUTO) 0.2 % (0.0-2.0); EOSINOPHILS % (AUTO) 0.4 % (1.0-6.0); HEMATOCRIT 33.4 % (41-53); HEMOGLOBIN 11.1 g/dL (13.5-17.5); LYMPHOCYTES # (AUTO) 1.5 K/uL (1.0-4.8); LYMPHOCYTES % (AUTO) 22.4 % (22.0-44.0); MEAN CORPUSCULAR HEMOGLOBIN 28.6 pg (26.0-34.0); MEAN CORPUSCULAR HGB CONC 33.2 G/dL (31.0-37.0); MEAN CORPUSCULAR VOLUME 86 fL (80-100); MONOCYTES # (AUTO) 0.3 K/uL (0.1-1.0); MONOCYTES % (AUTO) 3.8 % (2.0-9.0); NEUTROPHILS % (AUTO) 73.2 % (40.0-70.0); PLATELET COUNT (AUTO) 309 K/uL (150-450); RED BLOOD CELL COUNT(AUTO) 3.88 MIL/uL (4.50-5.90); RED CELL DISTRIBUTION WIDTH 15.9 % (11.5-14.5)
[2018-09-18 21:30] LABS: ANION GAP 10 mmol/L (8-16); CALCIUM, TOTAL 9.1 mg/dL (8.8-10.5); CARBON DIOXIDE 28 mmol/L (22-29); CHLORIDE 105 mmol/L (98-107); GLOMERULAR FILTR. RATE CALC > 60 mL/min (>60); GLUCOSE,RANDOM 90 mg/dL (70-110); POTASSIUM 3.5 mmol/L (3.5-5.1); SODIUM SERUM 143 mmol/L (136-145); UREA NITROGEN, BLOOD 16 mg/dL (7-18)
[2018-09-18 21:35] LABS: ALANINE AMINOTRANSFERASE 29 U/L (12-78); ALBUMIN 3.8 g/dL (3.4-5.0); ALKALINE PHOSPHATASE 85 U/L (46-116); ASPARTATE AMINOTRANSFERASE 27 U/L (15-37); BILIRUBIN,TOTAL 0.2 mg/dL (0.1-1.0); TOTAL PROTEIN, SERUM 8.3 g/dL (6.4-8.2)
[2018-09-18 21:39] LABS: AMPHET/METH SCREEN,URINE NEGATIVE (NEGATIVE); BARBITURATE SCREEN, URINE NEGATIVE (NEGATIVE); BENZODIAZEPINES SCREEN,URINE POSITIVE (NEGATIVE); CANNABINOID SCREEN,URINE POSITIVE (NEGATIVE); COCAINE SCREEN,URINE NEGATIVE (NEGATIVE); METHADONE SCREEN, URINE POSITIVE (NEGATIVE); OPIATE SCREEN,URINE NEGATIVE (NEGATIVE); PHENCYCLIDINE SCREEN,URINE NEGATIVE (NEGATIVE)
[2018-09-18] MEDS ORDERED: MAGNESIUM SULFATE 2 GM, MVI, ADULT NO.1 WITH VIT K 10 ML, THIAMINE HCL 100 MG, FOLIC AC... IV ONE ×5 (22:15)
[2018-09-18] MEDS ORDERED: LevETIRAcetam 1,000 MG in DEXTROSE 5%-WATER 100 ML IV ONE (22:15)
[2018-09-18 22:56] VITALS: BP 149/94
[2018-09-18] MEDS ORDERED: SODIUM CHLORIDE 0.9% 250 ML IV ONE (23:07)
[2018-09-19] MEDS: LORazepam 2 MG/ML VIAL IVP PRN ×3 (01:35→15:04)
[2018-09-19 05:00] VITALS: BP 131/96
[2018-09-19 07:39] VITALS: BP 126/92
[2018-09-19] MEDS: LevETIRAcetam 500 MG TABLET PO SCH ×2 (08:27→20:08)
[2018-09-19] MEDS: DOCUSATE SODIUM 100 MG CAPSULE PO SCH ×2 (08:27→20:09)
[2018-09-19] MEDS: MULTIVITAMINS WITH MINERALS, THERAPEUTIC TABLET PO SCH (08:27)
[2018-09-19] MEDS: FAMOTIDINE 20 MG TABLET PO SCH (08:28)
[2018-09-19] MEDS: METHADONE HCL 10 MG TABLET PO SCH (08:28)
[2018-09-19] MEDS: POTASSIUM CHL 10 MEQ/WATER 50 ML IV PRN ×3 (08:29→11:21)
[2018-09-19 11:26] VITALS: BP 132/71
[2018-09-19] MEDS: ChlordiazePOXIDE HCL 25 MG CAPSULE PO SCH ×3 (11:46→23:25)
[2018-09-19] MEDS ORDERED: SODIUM CHLORIDE 0.9% 250 ML IV ONE (11:49)
[2018-09-19 15:31] VITALS: BP 148/75
[2018-09-19 20:53] VITALS: BP 146/89
[2018-09-20] VITALS (7 sets, daily range): BP systolic 120–147; BP diastolic 66–87
[2018-09-20] MEDS: LORazepam 2 MG/ML VIAL IVP PRN ×3 (03:32→15:02)
[2018-09-20] MEDS: ChlordiazePOXIDE HCL 25 MG CAPSULE PO SCH ×3 (05:22→18:00)
[2018-09-20] MEDS: DOCUSATE SODIUM 100 MG CAPSULE PO SCH ×2 (08:33→20:03)
[2018-09-20] MEDS: FAMOTIDINE 20 MG TABLET PO SCH (08:34)
[2018-09-20] MEDS: LevETIRAcetam 500 MG TABLET PO SCH ×2 (08:34→20:04)
[2018-09-20] MEDS: THIAMINE HCL 100 MG TABLET PO SCH (08:34)
[2018-09-20] MEDS: METHADONE HCL 10 MG TABLET PO SCH (08:35)
[2018-09-20] MEDS: MULTIVITAMINS WITH MINERALS, THERAPEUTIC TABLET PO SCH (08:36)
[2018-09-20] MEDS ORDERED: FOLIC ACID 0.4 MG TABLET PO SCH (09:00)
[2018-09-20] MEDS: FOLIC ACID 1 MG TABLET PO SCH (10:09)
[2018-09-20] MEDS: OxyCODONE HCL/ACETAMINOPHEN 5-325 MG TABLET PO PRN (20:04)
[2018-09-21] MEDS: LORazepam 2 MG/ML VIAL IVP PRN ×4 (04:52→22:58)
[2018-09-21 05:10] VITALS: BP 152/80
[2018-09-21] MEDS: ChlordiazePOXIDE HCL 25 MG CAPSULE PO SCH ×5 (05:40→22:58)
[2018-09-21 07:27] VITALS: BP 127/81
[2018-09-21] MEDS: MULTIVITAMINS WITH MINERALS, THERAPEUTIC TABLET PO SCH (07:56)
[2018-09-21] MEDS: THIAMINE HCL 100 MG TABLET PO SCH (07:56)
[2018-09-21] MEDS: METHADONE HCL 10 MG TABLET PO SCH (07:56)
[2018-09-21] MEDS: FAMOTIDINE 20 MG TABLET PO SCH (07:56)
[2018-09-21] MEDS: FOLIC ACID 1 MG TABLET PO SCH (07:57)
[2018-09-21] MEDS: LevETIRAcetam 500 MG TABLET PO SCH ×2 (07:57→20:07)
[2018-09-21] MEDS: DOCUSATE SODIUM 100 MG CAPSULE PO SCH ×2 (07:59→20:08)
[2018-09-21 11:33] VITALS: BP 135/88
[2018-09-21] MEDS ORDERED: FOLI1TAB15 PO (13:58)
[2018-09-21] MEDS ORDERED: LIB25 PO (14:05)
[2018-09-21] MEDS ORDERED: THIA100T67 PO (14:05)
[2018-09-21 15:36] VITALS: BP 127/70
[2018-09-21 19:32] VITALS: BP 140/69
[2018-09-21 23:21] VITALS: BP 143/91
[2018-09-22 05:13] VITALS: BP 134/86
[2018-09-22] MEDS: ChlordiazePOXIDE HCL 25 MG CAPSULE PO SCH ×2 (05:18→12:41)
[2018-09-22 07:31] VITALS: BP 145/80
[2018-09-22] MEDS: DOCUSATE SODIUM 100 MG CAPSULE PO SCH (08:18)
[2018-09-22] MEDS: FAMOTIDINE 20 MG TABLET PO SCH (08:19)
[2018-09-22] MEDS: LevETIRAcetam 500 MG TABLET PO SCH (08:19)
[2018-09-22] MEDS: FOLIC ACID 1 MG TABLET PO SCH (08:19)
[2018-09-22] MEDS: MULTIVITAMINS WITH MINERALS, THERAPEUTIC TABLET PO SCH (08:19)
[2018-09-22] MEDS: METHADONE HCL 10 MG TABLET PO SCH (08:19)
[2018-09-22] MEDS: THIAMINE HCL 100 MG TABLET PO SCH (08:20)
[2018-09-22] MEDS: LORazepam 2 MG/ML VIAL IVP PRN ×2 (08:32→15:15)
[2018-09-22 12:01] VITALS: BP 126/86
[2018-09-22] MEDS: OxyCODONE HCL/ACETAMINOPHEN 5-325 MG TABLET PO PRN (12:47)
== END 2018-09-22 17:05 | disposition home or self-care (01) | DRG 775 ==
LOC: EMS 18:55 → 5S 21:00
PROVIDERS: ADMIT Internal Medicine; ATTEND Internal Medicine
DX: F10.239 Alcohol dependence with withdrawal, unspecified (principal); D64.9 Anemia, unspecified; F17.210 Nicotine dependence, cigarettes, uncomplicated; F12.90 Cannabis use, unspecified, uncomplicated; F41.9 Anxiety disorder, unspecified; Z88.1 Allergy status to other antibiotic agents; Z82.49 Family history of ischemic heart disease and other diseases of the circulatory system; Z91.19 Patient's noncompliance with other medical treatment and regimen; Z86.718 Personal history of other venous thrombosis and embolism; Z79.01 Long term (current) use of anticoagulants
CPT/HCPCS: 83735; 84132; 87081; 92526; 93005; 96374; 96375; G0378; G0480; J0712; J2060; J2405; J3411; J3475; J3480; J3490; J7030; J7050; J7060